=== PATIENT | female | born 1970 | race African-American/Black ===

== ENCOUNTER 2016-08-16 09:50 | Emergency (ER) | payer OTHER ==
[~2016-08-16] VITALS: Ht 172.7 cm; Wt 95.0 kg
[2016-08-16 09:51] VITALS: BP 185/100; PULSE 68; RESP 20; TEMP 98.4; O2SAT 99
--- NOTE | 2016-08-16 11:57 | PD ---
HPI Chief Complaint: Cold / Flu Symptoms Time Seen by Provider: 11:56 Travel History International Travel<30 days: No Contact w/Intl Traveler<30days: No Traveled to known affect area: No History of Present Illness HPI 46-year-old female with history of hypertension presents to the ED for evaluation of 5 day history of fevers, sinus congestion, clear rhinorrhea, sore throat, cough, pleuritic chest pain, shortness of breath, nonproductive cough, nausea and vomiting. Gradual onset. Patient states fevers have been advised high as 102, responsive to Tylenol. Last fever yesterday afternoon. She endorses similar symptoms in her coworkers. Denies this years flu shot. PFSH Past Medical History Cardiovascular Problems: Yes (htn) : 0 Para: 0 Miscarriage: 0 : 0 Past Surgical History Eye Surgery: Yes Hysterectomy: Yes Social History Alcohol Use: Yes (OCCASIONALLY) Tobacco Use: No Substance Use: No Allergies-Medications (Allergen,Severity, Reaction): Coded Allergies: No Known Allergies (Unverified , 08/16/16) Reported Meds & Prescriptions Reported Meds & Active Scripts Active Macrobid (Nitrofurantoin Monoh/Nitrofur Macro) 100 Mg Cap 100 Mg PO BID 7 Days Reported Edarbyclor (Azilsartan-Chlorthalidone) 40-12.5 Mg Tab 1 Tab PO DAILY Review of Systems Except as stated in HPI: all other systems reviewed are Neg Physical Exam Narrative GENERAL: Well-nourished, well-developed black female in no acute distress. SKIN: Warm and dry. HEAD: Normocephalic. Atraumatic. EYES: No scleral icterus. No injection or drainage. PERRLA. EOMI. ENT: Pearly gillette tympanic membranes bilaterally. Nasal mucosa is moist. Oropharynx without erythema, edema or exudate. Mallampati 4 NECK: Supple, trachea midline. No JVD or lymphadenopathy. CARDIOVASCULAR: Regular rate and rhythm without murmurs, gallops, or rubs. 2+ DP and radial pulses bilaterally. RESPIRATORY: Breath sounds clear and equal bilaterally. No accessory muscle use. GASTROINTESTINAL: Abdomen soft, non-tender, nondistended. + Bowel sounds MUSCULOSKELETAL: No cyanosis, or edema. Patient is a laboratory moves extremities spontaneously. BACK: No obvious deformity. No CVA tenderness. Point tenderness below the left scapula. Data Data Last Documented VS Vital Signs Date Time Temp Pulse Resp B/P Pulse Ox O2 Delivery O2 Flow Rate FiO2 08/16/16 12:17 18 98 Room Air 08/16/16 12:02 70 08/16/16 09:51 98.4 185/100 Orders Electrocardiogram (08/16/16 10:20) Complete Blood Count With Diff (08/16/16 12:07) Comprehensive Metabolic Panel (08/16/16 12:07) Ckmb (Isoenzyme) Profile (08/16/16 12:07) Troponin I (08/16/16 12:07) Urinalysis - C+S If Indicated (08/16/16 12:07) Influenzae A/B Antigen (08/16/16 12:07) Iv Access Insert/Monitor (08/16/16 12:07) Electrocardiogram (08/16/16 12:07) Ecg Monitoring (08/16/16 12:07) Oximetry (08/16/16 12:07) Oxygen Administration (08/16/16 12:07) Chest, Single Ap (08/16/16 12:07) Sodium Chloride 0.9% Flush (Ns Flush) (08/16/16 12:15) Ed Urine Pregnancytest Poc (08/16/16 12:07) Ondansetron Inj (Zofran Inj) (08/16/16 12:15) Sodium Chlor 0.9% 1000 Ml Inj (Ns 1000 M (08/16/16 12:15) Group A Rapid Strep Screen (08/16/16 12:15) Urine Culture (08/16/16 12:20) Strep Culture (Group A) (08/16/16 12:15) Labs Laboratory Tests Test 08/16/16 08/16/16 12:15 12:20 White Blood Count 6.2 TH/MM3 Red Blood Count 5.12 MIL/MM3 Hemoglobin 14.7 GM/DL Hematocrit 43.9 % Mean Corpuscular Volume 85.8 FL Mean Corpuscular Hemoglobin 28.7 PG Mean Corpuscular Hemoglobin 33.4 % Concent Red Cell Distribution Width 14.5 % Platelet Count 168 TH/MM3 Mean Platelet Volume 10.8 FL Neutrophils (%) (Auto) 68.7 % Lymphocytes (%) (Auto) 21.6 % Monocytes (%) (Auto) 7.3 % Eosinophils (%) (Auto) 1.9 % Basophils (%) (Auto) 0.5 % Neutrophils # (Auto) 4.3 TH/MM3 Lymphocytes # (Auto) 1.3 TH/MM3 Monocytes # (Auto) 0.4 TH/MM3 Eosinophils # (Auto) 0.1 TH/MM3 Basophils # (Auto) 0.0 TH/MM3 CBC Comment DIFF FINAL Differential Comment Sodium Level 140 MEQ/L Potassium Level 3.9 MEQ/L Chloride Level 106 MEQ/L Carbon Dioxide Level 28.5 MEQ/L Anion Gap 6 MEQ/L Blood Urea Nitrogen 9 MG/DL Creatinine 0.88 MG/DL Estimat Glomerular Filtration 84 ML/MIN Rate Random Glucose 78 MG/DL Calcium Level 9.4 MG/DL Total Bilirubin 0.4 MG/DL Aspartate Amino Transf 17 U/L (AST/SGOT) Alanine Aminotransferase 28 U/L (ALT/SGPT) Alkaline Phosphatase 67 U/L Total Creatine Kinase 94 U/L Troponin I LESS THAN 0.02 NG/ML Total Protein 8.1 GM/DL Albumin 4.3 GM/DL Urine Color LIGHT-YELLOW Urine Turbidity HAZY Urine pH 7.0 Urine Specific [place] 1.008 Urine Protein NEG mg/dL Urine Glucose (UA) NEG mg/dL Urine Ketones NEG mg/dL Urine Occult Blood NEG Urine Nitrite NEG Urine Bilirubin NEG Urine Urobilinogen LESS THAN 2.0 MG/DL Urine Leukocyte Esterase NEG Urine RBC 1 /hpf Urine WBC 3 /hpf Urine Squamous Epithelial 3 /hpf Cells Urine Bacteria MOD /hpf Urine Mucus FEW /lpf Microscopic Urinalysis Comment CULTURE INDICATED MDM Medical Decision Making Medical Screen Exam Complete: Yes Emergency Medical Condition: Yes Differential Diagnosis Viral syndrome versus influenza versus pharyngitis versus strep pharyngitis versus pneumonia versus less likely ACS versus UTI versus other Narrative Course 46-year-old female with history of hypertension presents to the ED for evaluation of 5 day history of fevers, sinus congestion, clear rhinorrhea, sore throat, cough, pleuritic chest pain, shortness of breath, nonproductive cough, nausea and vomiting. Gradual onset. Patient states fevers have been as high as 102, responsive to Tylenol. Last fever yesterday afternoon. She endorses similar symptoms in her coworkers. Denies this years flu shot. Vitals reviewed. Physical exam reveals a well-developed black female in no acute distress. ENT is am is unremarkable. No LAD. CTAB, no appreciable M/R/G. Abdomen soft, nontender, hyperactive bowel sounds. No CVA tenderness. There is point TTP just below the left shoulder blade. No edema of the lower extremities. IV was established. Patient was administered 1L NS, 4 mg Zofran IV. EKG: Rate 63, sinus rhythm. SD interval 149, QRS 80, QTC 426. LVH, Inverted T waves in V4-V6, I and AVL. No changes as compared to 10/03/13. Reviewed by Dr. Tripp. CXR: No acute disease per radiology read Cardiac enzymes: negative x 1 CBC: no leukocytosis BMP: Unremarkable Influenza: negative Rapid Strep: UA: Hazy, 3 WBCs, moderate bacteria. Culture pending. UPT: Negative This is viral syndrome, urinary tract infection. She was provided a 7 day course of Macrobid. Patient is encouraged to rest, hydrate, take all antibiotics as prescribed, treat symptomatically, follow-up with primary care provider. She was provided with a note for work. She indicated understanding of the instructions and is agreeable to the care plan. The patient is stable and discharged home. Diagnosis Primary Impression: Viral syndrome Additional Impressions: Pleuritic chest pain Urinary tract infection Qualified Code: N39.0 - Urinary tract infection without hematuria, site unspecified Referrals: Primary Care Physician Patient Instructions: General Instructions, Urinary Tract Infection in Women ( ED), Viral Syndrome (ED) Departure Forms: Tests/Procedures, Work Release Enter return to work date: August 18, 2016 Additional Instructions: Rest, hydrate. Push fluids such as sports drinks, Pedialyte, popsicles, clear broth. Continue with symptomatic treatment. Take all antibiotics as prescribed, even if her symptoms resolve. Alternating Motrin and Tylenol every 4-6 hours as needed for continued fever. Increase handwashing frequently to avoid the spread of the virus in the community. Disinfect commonly touched surfaces such as light switches, microwaves, remote controls. Replace toothbrush at the end of this illness. Follow-up with the primary care provider this week. Return to the ED for any urgent or emergent medical condition. Med/Other Pt SpecificInfo: Prescription(s) given Scripts Nitrofurantoin Monohydrate Macrocrystals (Macrobid)100 Mg Tam189 Mg PO BID 7 Days Ref 0 Prov:Noe Tripp MD 08/16/16 Disposition: 01 DISCHARGE HOME Condition: Stable Carol Leyva August 16, 2016 11:56
[2016-08-16] MEDS ORDERED: AZIL40TA PO (12:05)
[2016-08-16] MEDS ORDERED: SODIUM CHLORIDE 0.9% FLUSH 10 ML FLUSH IVF PRN (12:15)
[2016-08-16] MEDS ORDERED: SODIUM CHLOR 0.9% 1000 ML INJ 1,000 ML IV ONE (12:15)
[2016-08-16] MEDS ORDERED: ONDANSETRON HCL 4 MG/2 ML VIAL IV PUSH ONE (12:15)
[2016-08-16 12:17] VITALS: RESP 18; O2SAT 98
[2016-08-16 12:25] LABS: AUTOMATED NEUTROPHIL # 4.3 TH/MM3 (1.8-7.7); BASOPHIL % 0.5 % (0.0-2.0); EOSINOPHIL # 0.1 TH/MM3 (0-0.4); EOSINOPHIL % 1.9 % (0.0-4.0); HEMATOCRIT 43.9 % (35.0-46.0); LYMPH % 21.6 % (9.0-44.0); LYMPHOCYTE # 1.3 TH/MM3 (1.0-4.8); MEAN CELL VOLUME 85.8 FL (80.0-100.0); MEAN CORPUSCULAR HEMOGLOBIN 28.7 PG (27.0-34.0); MEAN CORPUSCULAR HGB CONC 33.4 % (32.0-36.0); MONO % 7.3 % (0.0-8.0); NEUT % 68.7 % (16.0-70.0); PLATELET COUNT 168 TH/MM3 (150-450); RED BLOOD COUNT 5.12 MIL/MM3 (4.00-5.30); RED CELL DISTRIBUTION WIDTH 14.5 % (11.6-17.2); WHITE BLOOD COUNT 6.2 TH/MM3 (4.0-11.0)
[2016-08-16 12:26] LABS: HEMO FLAGS DIFF FINAL
[2016-08-16 12:46] LABS: ALT (GPT) 28 U/L (10-53); ANION GAP 6 MEQ/L (5-15); AST (GOT) 17 U/L (15-37); BICARBONATE 28.5 MEQ/L (21.0-32.0); BLOOD UREA NITROGEN 9 MG/DL (7-18); CHLORIDE 106 MEQ/L (98-107); GLOMERULAR FILTRATION RATE 84 ML/MIN (>89); POTASSIUM 3.9 MEQ/L (3.5-5.1); SODIUM (NA) 140 MEQ/L (136-145)
[2016-08-16 12:49] LABS: ALKALINE PHOSPHATASE 67 U/L (45-117); TOTAL BILIRUBIN ADULT 0.4 MG/DL (0.2-1.0)
[2016-08-16 12:50] LABS: BACTERIA, URINE MOD /hpf; BLOOD, URINE NEG (NEG); COMMENT (UR) CULTURE INDICATED; CULTURE IF INDICATED CULTURE INDICATED; GLUCOSE,URINE NEG (NEG); KETONE, URINE NEG (NEG); MUCUS URINE FEW /lpf (OCC); NITRITE,URINE NEG (NEG); SQUAMOUS EPITHELIAL CELL URINE 3 /hpf (0-5); URINE COLOR LIGHT-YELLOW (YELLW/STRAW)
[2016-08-16 12:51] LABS: CREATINE KINASE 94 U/L (26-192)
--- NOTE | 2016-08-16 12:57 | RADRPT ---
EXAM DATE/TIME: 08/16/2016 12:27 [facility] COMPARISON: CHEST SINGLE AP, October 03, 2013, 10:00. INDICATIONS : Short of breath with vomiting and nausea x2 days. Mid sternal chest pains. MEDICAL HISTORY : None. SURGICAL HISTORY : None. ENCOUNTER: Initial ACUITY: 2 days PAIN SCORE: 7/10 LOCATION: Bilateral chest FINDINGS: A single view of the chest demonstrates the lungs to be symmetrically aerated without evidence of mas s, infiltrate or effusion. The cardiomediastinal contours are unremarkable. Osseous structures are intact. CONCLUSION: No acute disease. Dustin Cortes MD FACR on August 16, 2016 at 12:55 Board Certified Radiologist. This report was verified electronically.
[2016-08-16] MEDS ORDERED: MACR100C2 PO (13:13)
--- NOTE | 2016-08-17 15:15 | EKG ---
Date Performed: 08/16/2016 Time Performed: 10:26:44 PTAGE: 46 years EKG: Sinus rhythm WITH MARKED SINUS ARRHYTHMIA LEFT ATRIAL ENLARGEMENT Anterolateral ST-T wave changes due to LVH or i schemia ABNORMAL ECG PREVIOUS TRACING : 10/03/2013 08.37 DOCTOR: Prashant Rich Interpretating Date/Time 08/17/2016 15:15:05
== END 2016-08-16 13:52 | disposition home or self-care (01) ==
LOC: NEPD 09:50
DX: B34.9 Viral infection, unspecified (principal); R07.81 Pleurodynia; N39.0 Urinary tract infection, site not specified; B96.89 Other specified bacterial agents as the cause of diseases classified elsewhere; R94.31 Abnormal electrocardiogram [ECG] [EKG]; I10 Essential (primary) hypertension
CPT/HCPCS: 71010; 80053; 81001; 82550; 84484; 84703; 85025; 87081; 87086; 87804; 87880; 93005; 96361; 96374; 99284; J2405; J7030